=== PATIENT | female | born 1950 | race Caucasian/White ===

== ENCOUNTER 2017-04-08 18:57 | Emergency (ER) | payer BC, OTHER ==
[2017-04-08 19:03] VITALS: BP 179/93
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
== END 2017-04-08 20:35 | disposition home or self-care (01) ==
LOC: ER 18:57
DX: S09.90XA Unspecified injury of head, initial encounter (principal); V49.50XA Passenger injured in collision with unspecified motor vehicles in traffic accident, initial encounter; F41.9 Anxiety disorder, unspecified
CPT/HCPCS: 99283